=== PATIENT | female | born 2000 | race African-American/Black ===

== ENCOUNTER 2022-02-01 21:53 | Outpatient (CLI) | payer OTHER, SELFPAY ==
[2022-02-01 23:04] LABS: Appearance Urine UA CLEAR; Bilirubin Urine UA NEGATIVE (NEGATIVE); Color Urine UA YELLOW; Glucose Urine UA NEGATIVE (Negative); Ketones Urine UA NEGATIVE (NEGATIVE); Leukocyte Esterase Urine UA 2+ (NEGATIVE); Nitrite Urine UA NEGATIVE (Negative); Occult Blood Urine UA NEGATIVE (Negative); Protein Urine UA NEGATIVE (Negative); Urobilinogen Urine UA 0.2 E.U./dL (0.2)
--- NOTE | 2022-02-01 23:07 | P.TNLD_ITS ---
Visit Information Visit Information Date of evaluation: 02/01/22 On-call OB Provider: Keyshawn Urias Reason for Evaluation: Yes rule out labor Comments/Additional reasons for admission: Edward is a 22 yo who has been receiving care at [facility] presents here for evaluation of uterine contractions. No records are available for review at this time. According to the patient her VALE is 02/17/2022 and she is currently scheduled for repeat section on 02/11/2022. Patient has been having intermittent episodes of contractions during this for which she's been checked at [facility] in [place] as well as [facility] in [facility] where she's scheduled to have her repeat . Her baby is active and she denies bleeding, leakage of fluid PV, or change in discharge. She was seen for possible labor two weeks ago but was told her cervix was closed. Vital Signs Vital Signs: See OBIX Review of Systems Review of Systems Narrative: Problem-specific ROS positives included in HPI Exam Const General: cooperative Nutritional Appearance: thin Orientation: alert HENMT Head: normal to inspection Ears: hearing grossly normal bilaterally Eyes General: appearance normal, both eyes and all related structures Neck Neck: normal visual inspection GI Inspection: normal to inspection Palpation: mass (Gravid, EFW 7 lb., vertex) Uterus Location (Fundal Height): 36 Presentation: vertex Estimated Weight (lbs): 7 Other: SVE: Cervix is thick, closed w/ vertex at -3 station Objective Labs Labs: Laboratory Results - last 24 hr 02/01/22 22:50 Urine Color Yellow Urine Appearance Clear Urine pH 7.0 Ur Specific [place] 1.010 Urine Protein Negative Urine Glucose (UA) Negative Urine Ketones Negative Urine Occult Blood Negative Urine Nitrate Negative Urine Bilirubin Negative Urine Urobilinogen 0.2 Ur Leukocyte Esterase 2+ H Evaluation Evaluation Baseline heart rate: 150 Variability: Moderate (11-25) monitor accelerations: Present Monitor Decelerations: Absent Contraction Frequency (minutes): 6 Uterine Contraction Intensity: Mild Category of Tracing: Reactive Status: Category l Cervical dilation (cm): 0 Cervical effacement (%): 25 station: -3 Diagnosis, Plan/Disposition Plan/Disposition Plan: ASSESSMENT 1. Intrauterine gestation, @ 37+5 weeks EGA 2. Prior section 3. Uterine contractions with no evidence of cervical change PLAN 1. UA sent; 2+ WBC w/ neg nitrates; culture not performed 2. CBC and IV fluid bolus; Patient declined and asked to be discharge as soon as she was informed her cervix is thick and closed due to a friend waiting with her baby in the car 3. Home with instructions and follow-up TBA with her OB provider at [facility]. OB Disposition: home
[2022-02-01 23:12] LABS: Bacteria Urine Many (>30); Culture Indicated Urine Specimen Cultured; RBC Urine None Seen (0-5/HPF); Squamous Epithelial Cell Urine 1-5 /HPF (0-5/HPF); WBC Urine 1-5/HPF (0-5/HPF)
== END 2022-02-01 23:10 | disposition home or self-care (01) ==
LOC: LABOR 22:06 → OB 02-03 14:39
PROVIDERS: PCP Obstetrics & Gynecology; Referring Provider Obstetrics & Gynecology; Visit Provider Obstetrics & Gynecology
DX: O47.1 False labor at or after 37 completed weeks of gestation (principal); O34.219 Maternal care for unspecified type scar from previous cesarean delivery; Z3A.37 37 weeks gestation of pregnancy
CPT/HCPCS: 59025; 81003; 81015; 87086; G0378; G0379